=== PATIENT | female | born 1965 | race Caucasian/White ===

== ENCOUNTER 2018-12-24 11:06 | Emergency (ER) | payer BC ==
[2018-12-24 11:21] VITALS: BP 135/70
--- NOTE | 2018-12-24 11:56 | EDM.PDOC ---
ED HPI GENERAL MEDICAL PROBLEM - General Chief Complaint: Exposure to Heat or Cold Stated Complaint: VERY WEAK? Time Seen by Provider: 12/24/18 11:53 Source of Information: Reports: Patient History Limitations: Reports: No Limitations - History of Present Illness INITIAL COMMENTS - FREE TEXT/NARRATIVE: states her A/C broke and house got really hot then went outside to cool off. but has been feeling nauseous shaky no appetite all yesterday then today still feels little weak. denies CP/SOB but been having BOLAÑOS. - Related Data Allergies Allergy/AdvReac Type Severity Reaction Status Date / Time amoxicillin [Amoxicillin] Allergy Unknown UNKNOWN Verified 12/24/18 11:18 cephalexin [Cephalexin] Allergy Unknown Rash Verified 12/24/18 11:18 Penicillins Allergy Unknown UNKNOWN Verified 12/24/18 11:18 telithromycin [Telithromycin] Allergy Unknown Nausea Verified 12/24/18 11:18 Home Meds: Home Meds Omeprazole Magnesium [Prilosec Otc] 20 mg PO ASDIRECTED 12/14/14 [History] Simvastatin [Zocor] 20 mg PO DAILY 12/14/14 [History] lamoTRIgine [Lamotrigine] 100 mg PO BID 12/14/14 [History] Albuterol [Proair HFA] 2 puff IH Q6HR PRN 04/23/15 [History] Fluticasone/Salmeterol [Advair 250-50] 1 puff IH BID 04/23/15 [History] Levothyroxine [Synthroid] 112 mcg PO ACBREAKFAST 04/23/15 [History] Venlafaxine HCl [Venlafaxine ER] 75 mg PO DAILY 06/17/18 [History] Past Medical History HEENT History: Reports: None Cardiovascular History: Reports: None Respiratory History: Reports: None Gastrointestinal History: Reports: None Genitourinary History: Reports: None [employer]INU[employer] PROCESS History: Reports: None Neurological History: Reports: None Psychiatric History: Reports: None Endocrine/Metabolic History: Reports: None Hematologic History: Reports: None Immunologic History: Reports: None Oncologic (Cancer) History: Reports: None Dermatologic History: Reports: None - Infectious Disease History Infectious Disease History: Reports: None - Past Surgical History Head Surgeries/Procedures: Reports: None Other HEENT Surgeries/Procedures: rt jaw noncancerous tumor removed Other Female Surgeries/Procedures: rt breast surgeries Other Musculoskeletal Surgeries/Procedures:: rt wrist surgery Social & Family History - Family History Family Medical History: Noncontributory - Tobacco Use Smoking Status *Q: Never Smoker Second Hand Smoke Exposure: No - Caffeine Use Caffeine Use: Reports: Coffee - Recreational Drug Use Recreational Drug Use: No ED ROS GENERAL - Review of Systems Review Of Systems: ROS reveals no pertinent complaints other than HPI. ED EXAM, GENERAL - Physical Exam Exam: See Below Exam Limited By: No Limitations General Appearance: Alert, WD/WN, Mild Distress, Other (discomfort) Eye Exam: Bilateral Eye: PERRL (pupils ER @ 4mm) Ears: Hearing Grossly Normal Throat/Mouth: Normal Voice, No Airway Compromise Head: Atraumatic Neck: Non-Tender, Full Range of Motion Respiratory/Chest: No Respiratory Distress Cardiovascular: Regular Rate, Rhythm GI/Abdominal: Soft, Non-Tender Neurological: Alert, Oriented, Normal Cognition, Normal Gait, No Motor/Sensory Deficits Psychiatric: Flat Affect Skin Exam: Warm, Dry, Normal Color Lymphatic: No Adenopathy Course - Vital Signs Last Recorded V/S: Last Vital Signs Temp 36.3 C 12/24/18 11:18 Pulse 80 12/24/18 11:18 Resp 18 12/24/18 11:18 BP 135/70 12/24/18 11:18 Pulse Ox 100 12/24/18 11:18 - Orders/Labs/Meds Orders: Active Orders 24 hr Category Date Time Status Chest 1V Frontal [CR] Urgent Exams 12/24/18 11:59 Taken TROPONIN I [CHEM] Stat Lab 12/24/18 11:30 Received Sodium Chloride 0.9% [Normal Saline] 1,000 ml Med 12/24/18 12:30 Active IV ASDIRECTED Medication Orders Sodium Chloride (Normal Saline) 1,000 mls @ 999 mls/hr IV ASDIRECTED YOHANA Last Admin: 12/24/18 11:30 Dose: 999 mls/hr Labs: Laboratory Tests 12/24/18 12/24/18 Range/Units 11:30 11:30 WBC 7.9 (5.0-10.0) 10^3/uL RBC 5.40 (4.2-5.4) 10^6/uL Hgb 15.1 D (12.0-16.0) g/dL Hct 46.7 (37.0-47.0) % MCV 86.5 (80-100) fL MCH 28.0 (27.0-34.0) pg MCHC 32.3 L (33.0-35.0) g/dL Plt Count 331 D (150-450) 10^3/uL Neut % (Auto) 61.5 (42.2-75.2) % Lymph % (Auto) 29.1 (20.5-50.1) % [place] % (Auto) 9.0 H (2-8) % Eos % (Auto) 0.1 L (1.0-3.0) % Baso % (Auto) 0.3 (0.0-1.0) % Sodium 138 (135-145) mmol/L Potassium 3.8 (3.6-5.0) mmol/L Chloride 101 (101-111) mmol/L Carbon Dioxide 25.0 (21.0-31.0) mmol/L Anion Gap 15.8 BUN 13 (7-18) mg/dL Creatinine 1.0 (0.6-1.3) mg/dL Est Cr Clr Drug Dosing 55.54 mL/min Estimated GFR (MDRD) 58 BUN/Creatinine Ratio 13.00 Glucose 115 H (74-105) mg/dL Calcium 9.1 (8.4-10.2) mg/dl Total Bilirubin 0.7 (0.2-1.0) mg/dL AST 26 (10-42) IU/L ALT 24 (10-60) IU/L Alkaline Phosphatase 89 (42-121) IU/L Total Protein 8.1 (6.7-8.2) g/dl Albumin 4.5 (3.2-5.5) g/dl Globulin 3.6 Albumin/Globulin Ratio 1.25 Meds: Medications Generic Name Dose Route Start Last Admin Trade Name Freq PRN Reason Stop Dose Admin Sodium Chloride 1,000 mls @ 999 mls/hr 12/24/18 12:30 12/24/18 11:30 Normal Saline IV 999 mls/hr ASDIRECTED [facility] Administration - Re-Assessments/Exams Free Text/Narrative Re-Assessment/Exam: 12/24/18 12:54 results discussed with pt who is feeling better and normal now. Departure - Departure Time of Disposition: 12:55 Disposition: Home, Self-Care 01 Condition: Good Clinical Impression: Dehydration - Discharge Information Instructions: Dehydration, Adult, [id number] Forms: ED Department Discharge Additional Instructions: 1) rest 2) drink lot of liquids 3) recheck if there is any change or concern - My Orders Last 24 Hours: My Active Orders 12/24/18 11:30 TROPONIN I [CHEM] Stat 12/24/18 11:59 Chest 1V Frontal [CR] Urgent 12/24/18 12:30 Sodium Chloride 0.9% [Normal Saline] 1,000 ml IV ASDIRECTED - Assessment/Plan Last 24 Hours: My Active Orders 12/24/18 11:30 TROPONIN I [CHEM] Stat 12/24/18 11:59 Chest 1V Frontal [CR] Urgent 12/24/18 12:30 Sodium Chloride 0.9% [Normal Saline] 1,000 ml IV ASDIRECTED
[2018-12-24 11:59] LABS: ANION GAP 15.8
[2018-12-24] MEDS ORDERED: Sodium Chloride 0.9% 1,000 ML IV SCH (12:30)
== END 2018-12-24 13:07 | disposition home or self-care (01) ==
LOC: DL.ED 11:06
DX: E86.0 Dehydration (principal); Z88.1 Allergy status to other antibiotic agents; Z88.0 Allergy status to penicillin; Z79.899 Other long term (current) drug therapy
CPT/HCPCS: 36415; 71045; 80053; 84484; 85025; 96360; 99284; J7030

== ENCOUNTER 2019-09-30 10:43 | Emergency (ER) | payer BC ==
[2019-09-30 10:53] VITALS: BP 145/88; PULSE 91
[2019-09-30] MEDS: Aspirin 81 MG Tab.Chew PO ONE (10:57)
[2019-09-30 11:22] LABS: ANION GAP 8.8 mEq/L (7-13); CHLORIDE,CL 101 mmol/L (98-107); SODIUM,NA 141 mmol/L (136-145)
[2019-09-30] MEDS: Ketorolac 30 MG/ML SDV IVPUSH ONE (11:45)
--- NOTE | 2019-09-30 12:13 | EDM.PDOC ---
Scribed by Madeleine Winston 09/30/19 1126 for Yovanny [place] ED HPI GENERAL MEDICAL PROBLEM - General Chief Complaint: Chest Pain Stated Complaint: POSSIBLE HEART ATTACK Time Seen by Provider: 09/30/19 11:06 Source of Information: Reports: Patient, RN, RN Notes Reviewed History Limitations: Reports: No Limitations - History of Present Illness INITIAL COMMENTS - FREE TEXT/NARRATIVE: This 54 yo female presents to ER with chest pain radiating to right shoulder and back. Her pain started at 10:30 A.M. yesterday. She was seen in the clinic yesterday. She had shoulder pain so an x-ray was done. She was given a muscle relaxer but did not fill that prescription. She took an old medication from 2016. She has had no sleep. She did take an Tylenol this A.M. with no change. She sneezed this A.M. and had increased chest pain. Onset Date: 09/29/19 Duration: Constant Location: Reports: Chest, Back, Upper Extremity, Right Quality: Reports: Ache Severity: Severe Improves with: Reports: None Worsens with: Reports: None Associated Symptoms: Reports: No Other Symptoms Treatments DIRECTOR OF PHYSIOTHERAPY SERVICES: Reports: Acetaminophen Right Chest Pain Score (Numeric/FACES): 10 - Related Data Allergies Allergy/AdvReac Type Severity Reaction Status Date / Time amoxicillin [Amoxicillin] Allergy Unknown UNKNOWN Verified 09/30/19 10:58 cephalexin [Cephalexin] Allergy Unknown Rash Verified 09/30/19 10:58 Penicillins Allergy Unknown UNKNOWN Verified 09/30/19 10:58 telithromycin [Telithromycin] Allergy Unknown Nausea Verified 09/30/19 10:58 Home Meds: Home Meds Omeprazole Magnesium [Prilosec Otc] 20 mg PO ASDIRECTED 12/14/14 [History] Simvastatin [Zocor] 20 mg PO DAILY 12/14/14 [History] lamoTRIgine [Lamotrigine] 100 mg PO BID 12/14/14 [History] Albuterol [Proair HFA] 2 puff IH Q6HR PRN 04/23/15 [History] Fluticasone/Salmeterol [Advair 250-50] 1 puff IH BID 04/23/15 [History] Levothyroxine [Synthroid] 125 mcg PO ACBREAKFAST 10/06/15 [History] Venlafaxine HCl [Venlafaxine ER] 75 mg PO DAILY 06/17/18 [History] Cyclobenzaprine [Flexeril] 10 mg PO Q8HR PRN 09/30/19 [History] Meloxicam 15 mg PO DAILY 09/30/19 [History] Past Medical History HEENT History: Reports: None Cardiovascular History: Reports: None Respiratory History: Reports: None Gastrointestinal History: Reports: GERD Genitourinary History: Reports: None [employer] History: Reports: None Neurological History: Reports: None Psychiatric History: Reports: None Endocrine/Metabolic History: Reports: None Hematologic History: Reports: None Immunologic History: Reports: None Oncologic (Cancer) History: Reports: None Dermatologic History: Reports: None - Infectious Disease History Infectious Disease History: Reports: None - Past Surgical History Head Surgeries/Procedures: Reports: None Other HEENT Surgeries/Procedures: rt jaw noncancerous tumor removed Other Female Surgeries/Procedures: rt breast surgeries Other Musculoskeletal Surgeries/Procedures:: rt wrist surgery Social & Family History - Family History Family Medical History: Noncontributory - Caffeine Use Caffeine Use: Reports: Coffee ED ROS GENERAL - Review of Systems Review Of Systems: Comprehensive ROS is negative, except as noted in HPI. ED EXAM, GENERAL - Physical Exam Exam: See Below Exam Limited By: No Limitations General Appearance: Anxious Eye Exam: Bilateral Eye: EOMI, Normal Inspection, PERRL Ears: Normal External Exam, Normal Canal, Hearing Grossly Normal, Normal TMs Nose: Normal Inspection, Normal Mucosa, No Blood Throat/Mouth: Normal Inspection, Normal Lips, Normal Teeth, Normal Gums, Normal Oropharynx, Normal Voice, No Airway Compromise Head: Atraumatic, Normocephalic Neck: Normal Inspection, Supple, Non-Tender, Full Range of Motion Respiratory/Chest: No Respiratory Distress, Lungs Clear, Other (chest wall tenderness to palpation) Cardiovascular: Normal Peripheral Pulses, Regular Rate, Rhythm, No Edema, No Gallop, No JVD, No Murmur, No Rub GI/Abdominal: Normal Bowel Sounds, Soft, Non-Tender, No Organomegaly, No Distention, No Abnormal Bruit, No Mass (Female) Exam: Deferred Rectal (Female) Exam: Deferred Back Exam: Normal Inspection, Full Range of Motion, NT Extremities: Normal Inspection, Normal Range of Motion, Non-Tender, Normal Capillary Refill, No Pedal Edema Neurological: Alert, Oriented, CN II-XII Intact, Normal Cognition, Normal Gait, Normal Reflexes, No Motor/Sensory Deficits Psychiatric: Anxious Skin Exam: Warm, Dry, Intact, Normal Color, No Rash Course - Vital Signs Last Recorded V/S: Last Vital Signs Temp 37.3 C 09/30/19 10:51 Pulse 91 09/30/19 10:51 Resp 14 09/30/19 10:51 BP 145/88 H 09/30/19 10:51 Pulse Ox 96 09/30/19 10:51 - Orders/Labs/Meds Orders: Active Orders 24 hr Category Date Time Status EKG Documentation Completion [RC] URGENT Care 09/30/19 10:44 Active Labs: Laboratory Tests 09/30/19 09/30/19 09/30/19 Range/Units 10:51 10:51 10:51 WBC 13.6 H (5.0-10.0) 10^3/uL RBC 4.96 (4.2-5.4) 10^6/uL Hgb 13.5 D (12.0-16.0) g/dL Hct 41.4 (37.0-47.0) % MCV 83.5 D (80-100) fL MCH 27.2 (27.0-34.0) pg MCHC 32.6 L (33.0-35.0) g/dL Plt Count 282 (150-450) 10^3/uL Neut % (Auto) 72.2 (42.2-75.2) % Lymph % (Auto) 16.8 L (20.5-50.1) % [place] % (Auto) 10.6 H (2-8) % Eos % (Auto) 0.1 L (1.0-3.0) % Baso % (Auto) 0.3 (0.0-1.0) % D-Dimer, Quantitative 170 (0-400) ng/mL Sodium 141 (136-145) mmol/L Potassium 3.8 (3.5-5.1) mmol/L Chloride 101 (98-107) mmol/L Carbon Dioxide 35 H (21-32) mmol/L Anion Gap 8.8 (7-13) mEq/L BUN 7 (7-18) mg/dL Creatinine 0.82 (0.55-1.02) mg/dL Est Cr Clr Drug Dosing 66.94 mL/min Estimated GFR (MDRD) > 60 BUN/Creatinine Ratio 8.5 (No establ ref range) Glucose 107 H (74-99) mg/dL Calcium 8.6 (8.5-10.1) mg/dL Total Bilirubin 0.5 (0.2-1.0) mg/dL AST 14 L (15-37) U/L ALT 23 (14-59) U/L Alkaline Phosphatase 106 (46-116) U/L Troponin I < 0.017 (0.000-0.056) ng/mL Total Protein 7.6 (6.4-8.2) g/dL Albumin 3.8 (3.4-5.0) g/dL Globulin 3.8 Albumin/Globulin Ratio 1.0 Meds: Medications Discontinued Medications Generic Name Dose Route Start Last Admin Trade Name Freq PRN Reason Stop Dose Admin Aspirin 324 mg 09/30/19 10:45 09/30/19 10:57 Aspirin PO 09/30/19 10:46 324 mg ONETIME ONE Administration Ketorolac Tromethamine 30 mg 09/30/19 11:41 09/30/19 11:45 Toradol IVPUSH 09/30/19 11:42 30 mg ONETIME ONE Administration Orphenadrine Citrate 60 mg 09/30/19 12:08 Norflex IM 09/30/19 12:09 ONETIME ONE Departure - Departure Time of Disposition: 12:09 Disposition: Home, Self-Care 01 Condition: Fair Clinical Impression: Muscle strain of upper back Instructions: Muscle Strain, [id number] Forms: ED Department Discharge Care Plan Goals: The patient was advised of the examination, lab, EKG and x-ray results during the visit. The patient was given an IV dose of Toradol and an injection of Norflex while in the ED. The patient was discharged with a script for Toradol ( 10 mg) #12 to take 1 by mouth every 6 hours. The patient was encouraged to take her Flexeril as prescribed. If the patient has any additional symptoms or concerns, the patient should either return to the emergency department or visit her primary care facility. Sepsis Event Note - Evaluation Sepsis Screening Result: No Definite Risk - Focused Exam Vital Signs: Vital Signs Temp Pulse Resp BP Pulse Ox 09/30/19 10:51 37.3 C 91 14 145/88 H 96 Date Exam was Performed: 09/30/19 Time Exam was Performed: 12:09 - My Orders Last 24 Hours: My Active Orders 09/30/19 10:44 EKG Documentation Completion [RC] URGENT - Assessment/Plan Last 24 Hours: My Active Orders 09/30/19 10:44 EKG Documentation Completion [RC] URGENT I have read and agree with the documentation that has been completed regarding this visit. By signing this record, I attest that the documentation was completed in my physical presence and is an accurate record of the encounter.
== END 2019-09-30 12:38 | disposition home or self-care (01) ==
LOC: DL.ED 10:43
DX: S29.012A Strain of muscle and tendon of back wall of thorax, initial encounter (principal); K21.9 Gastro-esophageal reflux disease without esophagitis; Z88.1 Allergy status to other antibiotic agents; Z88.0 Allergy status to penicillin; Z79.899 Other long term (current) drug therapy; X58.XXXA Exposure to other specified factors, initial encounter
CPT/HCPCS: 36415; 71045; 80053; 84484; 85025; 85379; 93005; 96372; 96374; 99285; A9270; J1885; J2360

== ENCOUNTER 2021-06-30 12:29 | Emergency (ER) | payer BC ==
[2021-06-30 14:24] VITALS: BP 141/84; PULSE 127
[2021-06-30] MEDS ORDERED: Ondansetron 4 MG/2 ML SDV IVPUSH ONE (14:30)
[2021-06-30] MEDS ORDERED: Sodium Chloride 0.9% 1,000 ML IV ONE (14:30)
[2021-06-30] MEDS ORDERED: GI Cocktail Oral Solution 30 ML PO ONE (14:44)
--- NOTE | 2021-06-30 14:44 | EDM.PDOC ---
ED HPI GENERAL MEDICAL PROBLEM - General Chief Complaint: Abdominal Pain Stated Complaint: THROWING UP Time Seen by Provider: 06/30/21 14:31 Source of Information: Reports: Patient, RN, RN Notes Reviewed History Limitations: Reports: No Limitations - History of Present Illness INITIAL COMMENTS - FREE TEXT/NARRATIVE: Danyelle is a 56 y/o female who presents to the ED via personal vehicle with complaints of abdominal pain, nausea, vomiting, and diarrhea. The patient reports her symptoms began this morning at approximately 0300. Since that time she has experienced 8 bouts of emesis and as many episodes of diarrhea. She notes both of bilious in nature, however she noted some mendez-red blood with her last emesis and became worried. She characterizes the pain to her midepigastric area as sharp with radiation into her back. The pain waxes and wanes in severity and causes her to experienced SOB at times. The patient reports she was diagnosed with COVID-19 in early May and has recovered without complication. She denies fever, shaking chills, vision changes, dizziness, chest pain/pressure, dysuria, hematuria, hematochezia, or melena. She has taken no medications for her symptoms. The patient denies tobacco, alcohol, or recreational drug use. - Related Data Allergies Allergy/AdvReac Type Severity Reaction Status Date / Time amoxicillin [Amoxicillin] Allergy Unknown UNKNOWN Verified 09/30/19 10:58 cephalexin [Cephalexin] Allergy Unknown Rash Verified 09/30/19 10:58 Penicillins Allergy Unknown UNKNOWN Verified 09/30/19 10:58 telithromycin [Telithromycin] Allergy Unknown Nausea Verified 09/30/19 10:58 Home Meds: Home Meds Omeprazole Magnesium [Prilosec Otc] 20 mg PO ASDIRECTED 12/14/14 [History] Simvastatin [Zocor] 20 mg PO DAILY 12/14/14 [History] lamoTRIgine [Lamotrigine] 50 mg PO BID 12/14/14 [History] Levothyroxine [Synthroid] 200 mcg PO ACBREAKFAST 04/23/15 [History] Venlafaxine HCl [Venlafaxine ER] 75 mg PO DAILY 06/17/18 [History] Adalimumab [Humira(Cf) Pen] 1 injection SQ WEEKLY 06/30/21 [History] Past Medical History HEENT History: Reports: None Cardiovascular History: Reports: None Respiratory History: Reports: None Gastrointestinal History: Reports: GERD Genitourinary History: Reports: None 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 Neurological History: Reports: None Psychiatric History: Reports: None Endocrine/Metabolic History: Reports: None Hematologic History: Reports: None Immunologic History: Reports: None Oncologic (Cancer) History: Reports: None Dermatologic History: Reports: None - Infectious Disease History Infectious Disease History: Reports: None - Past Surgical History Head Surgeries/Procedures: Reports: None Other HEENT Surgeries/Procedures: rt jaw noncancerous tumor removed Other Female Surgeries/Procedures: rt breast surgeries Other Musculoskeletal Surgeries/Procedures:: rt wrist surgery Social & Family History - Family History Family Medical History: No Pertinent Family History - Tobacco Use Tobacco Use Status *Q: Former Tobacco User Used Tobacco, but Quit: Yes Month/Year Tobacco Last Used: 07/2015 - Caffeine Use Caffeine Use: Reports: Coffee - Recreational Drug Use Recreational Drug Use: No ED ROS GENERAL - Review of Systems Review Of Systems: Comprehensive ROS is negative, except as noted in HPI. ED EXAM, GI/ABD - Physical Exam Exam: See Below Exam Limited By: No Limitations General Appearance: Alert, No Apparent Distress Eyes: Bilateral: Normal Appearance, EOMI Ears: Normal External Exam, Hearing Grossly Normal Nose: Normal Inspection, Normal Mucosa Throat/Mouth: Normal Voice, No Airway Compromise. No: Normal Oropharynx (Dry mucous membranes) Head: Atraumatic, Normocephalic Neck: Normal Inspection, Supple, Non-Tender, Full Range of Motion. No: Lymphadenopathy (L), Lymphadenopathy (R) Respiratory/Chest: No Respiratory Distress, Lungs Clear, Normal Breath Sounds, No Accessory Muscle Use, Chest Non-Tender. No: Crackles, Rales, Rhonchi, Wheezing, Stridor Cardiovascular: Normal Peripheral Pulses, Regular Rate, Rhythm, No Edema, No Gallop, No JVD, No Murmur, No Rub, Tachycardia GI/Abdominal Exam: Soft, No Distention, No Abnormal Bruit, No Mass, Pelvis Stable, Tender (To midepigastric region; not worsened by palpation), Abnormal Bowel Sounds (Hypoactive bowel sounds). No: Guarding, Rigid, Rebound (Female) Exam: Deferred Rectal (Female) Exam: Deferred Back Exam: Normal Inspection, Full Range of Motion. No: CVA Tenderness (L), CVA Tenderness (R) Extremities: Normal Inspection, Normal Range of Motion, Normal Capillary Refill Neurological: Alert, Oriented, CN II-XII Intact, Normal Cognition, Normal Gait, No Motor/Sensory Deficits Psychiatric: Normal Affect, Normal Mood Skin Exam: Warm, Intact, Normal Color, No Rash, Diaphoretic. No: Cyanosis, Jaundice, Mottled, Pallor Course - Vital Signs Last Recorded V/S: Last Vital Signs Temp 99.5 F 06/30/21 14:07 Pulse 127 H 06/30/21 14:07 Resp 20 06/30/21 14:07 BP 141/84 H 06/30/21 14:07 Pulse Ox 94 L 06/30/21 14:07 - Orders/Labs/Meds Labs: Laboratory Tests 06/30/21 06/30/21 06/30/21 Range/Units 14:38 14:38 14:38 WBC 9.6 (5.0-10.0) 10^3/uL RBC 5.54 H (4.2-5.4) 10^6/uL Hgb 15.6 D (12.0-16.0) g/dL Hct 47.2 H (37.0-47.0) % MCV 85.2 (80-100) fL MCH 28.2 (27.0-34.0) pg MCHC 33.1 (33.0-35.0) g/dL Plt Count 282 (150-450) 10^3/uL Neut % (Auto) 82.5 H (42.2-75.2) % Lymph % (Auto) 7.1 L (20.5-50.1) % [place] % (Auto) 9.8 H (2-8) % Eos % (Auto) 0.1 L (1.0-3.0) % Baso % (Auto) 0.5 (0.0-1.0) % Sodium 141 (136-145) mmol/L Potassium 3.6 (3.5-5.1) mmol/L Chloride 102 (98-107) mmol/L Carbon Dioxide 21 D (21-32) mmol/L Anion Gap 21.6 H (7-13) mEq/L BUN 20 H (7-18) mg/dL Creatinine 1.17 H (0.55-1.02) mg/dL Est Cr Clr Drug Dosing 45.81 mL/min Estimated GFR (MDRD) 48 BUN/Creatinine Ratio 17.1 (No establ ref range) Glucose 162 H (70-99) mg/dL Lactic Acid 2.7 H* (0.4-2.0) mmol/L Calcium 8.8 (8.5-10.1) mg/dL Total Bilirubin 0.3 (0.2-1.0) mg/dL AST 21 (15-37) U/L ALT 33 (14-59) U/L Alkaline Phosphatase 92 (46-116) U/L C-Reactive Protein < 0.2 (0.0-0.9) mg/dL Total Protein 8.6 H (6.4-8.2) g/dL Albumin 4.3 (3.4-5.0) g/dL Globulin 4.3 Albumin/Globulin Ratio 1.0 Amylase 34 (25-115) U/L Lipase 70 L (73-393) U/L Urine Color (YELLOW) Urine Appearance (CLEAR) Urine pH (5.0-9.0) Ur Specific [place] (1.005-1.030) Urine Protein (NEGATIVE) Urine Glucose (UA) (NEGATIVE) Urine Ketones (NEGATIVE) Urine Occult Blood (NEGATIVE) Urine Nitrite (NEGATIVE) Urine Bilirubin (NEGATIVE) Urine Urobilinogen (0.2-1.0) mg/dL Ur Leukocyte Esterase (NEGATIVE) U Hyaline Cast (Auto) Urine RBC (0-5) /HPF Urine WBC (0-5/HPF) /HPF Ur Epithelial Cells (NOT SEEN) /HPF Urine Bacteria (0-FEW/HPF) /HPF Urine Mucus (NOT SEEN) /LPF Urine HCG, Qual Urine Opiates Screen (NEGATIVE) Ur Oxycodone Screen (NEGATIVE) Urine Methadone Screen (NEGATIVE) Ur Barbiturates Screen (NEGATIVE) U Tricyclic Antidepress (NEGATIVE) Ur Phencyclidine Scrn (NEGATIVE) Ur Amphetamine Screen (NEGATIVE) U Methamphetamines Scrn (NEGATIVE) Urine MDMA Screen (NEGATIVE) U Benzodiazepines Scrn (NEGATIVE) Urine Cocaine Screen (NEGATIVE) U Marijuana (THC) Screen (NEGATIVE) Ethyl Alcohol < 3 (0) mg/dL 06/30/21 06/30/21 06/30/21 Range/Units 17:25 17:25 17:25 WBC (5.0-10.0) 10^3/uL RBC (4.2-5.4) 10^6/uL Hgb (12.0-16.0) g/dL Hct (37.0-47.0) % MCV (80-100) fL MCH (27.0-34.0) pg MCHC (33.0-35.0) g/dL Plt Count (150-450) 10^3/uL Neut % (Auto) (42.2-75.2) % Lymph % (Auto) (20.5-50.1) % [place] % (Auto) (2-8) % Eos % (Auto) (1.0-3.0) % Baso % (Auto) (0.0-1.0) % Sodium (136-145) mmol/L Potassium (3.5-5.1) mmol/L Chloride (98-107) mmol/L Carbon Dioxide (21-32) mmol/L Anion Gap (7-13) mEq/L BUN (7-18) mg/dL Creatinine (0.55-1.02) mg/dL Est Cr Clr Drug Dosing mL/min Estimated GFR (MDRD) BUN/Creatinine Ratio (No establ ref range) Glucose (70-99) mg/dL Lactic Acid (0.4-2.0) mmol/L Calcium (8.5-10.1) mg/dL Total Bilirubin (0.2-1.0) mg/dL AST (15-37) U/L ALT (14-59) U/L Alkaline Phosphatase (46-116) U/L C-Reactive Protein (0.0-0.9) mg/dL Total Protein (6.4-8.2) g/dL Albumin (3.4-5.0) g/dL Globulin Albumin/Globulin Ratio Amylase (25-115) U/L Lipase (73-393) U/L Urine Color Dark yellow (YELLOW) Urine Appearance Slightly cloudy (CLEAR) Urine pH 5.5 (5.0-9.0) Ur Specific [place] >= 1.030 (1.005-1.030) Urine Protein 100 H (NEGATIVE) Urine Glucose (UA) Negative (NEGATIVE) Urine Ketones Negative (NEGATIVE) Urine Occult Blood Negative (NEGATIVE) Urine Nitrite Negative (NEGATIVE) Urine Bilirubin Negative (NEGATIVE) Urine Urobilinogen 0.2 (0.2-1.0) mg/dL Ur Leukocyte Esterase Negative (NEGATIVE) U Hyaline Cast (Auto) Many Urine RBC 0-5 (0-5) /HPF Urine WBC 0-5 (0-5/HPF) /HPF Ur Epithelial Cells Many H (NOT SEEN) /HPF Urine Bacteria Moderate H (0-FEW/HPF) /HPF Urine Mucus Moderate H (NOT SEEN) /LPF Urine HCG, Qual Negative Urine Opiates Screen Negative (NEGATIVE) Ur Oxycodone Screen Negative (NEGATIVE) Urine Methadone Screen Negative (NEGATIVE) Ur Barbiturates Screen Negative (NEGATIVE) U Tricyclic Antidepress Negative (NEGATIVE) Ur Phencyclidine Scrn Negative (NEGATIVE) Ur Amphetamine Screen Negative (NEGATIVE) U Methamphetamines Scrn Negative (NEGATIVE) Urine MDMA Screen Negative (NEGATIVE) U Benzodiazepines Scrn Negative (NEGATIVE) Urine Cocaine Screen Negative (NEGATIVE) U Marijuana (THC) Screen Negative (NEGATIVE) Ethyl Alcohol (0) mg/dL Meds: Medications Discontinued Medications Generic Name Dose Route Start Last Admin Trade Name Freq PRN Reason Stop Dose Admin Al Hydroxide/Mg Hydroxide 30 ml 06/30/21 14:44 06/30/21 14:54 Gi Cocktail Oral Solution 30 Ml PO 06/30/21 14:45 30 ml ONETIME ONE Administration Sodium Chloride 1,000 mls @ 999 mls/hr 06/30/21 14:30 06/30/21 14:32 Normal Saline IV 06/30/21 15:30 999 mls/hr .BOLUS ONE Administration Ondansetron HCl 4 mg 06/30/21 14:30 06/30/21 14:32 Ondansetron 4 Mg/2 Ml Sdv IVPUSH 06/30/21 14:31 4 mg ONETIME ONE Administration - Re-Assessments/Exams Free Text/Narrative Re-Assessment/Exam: 06/30/21 Zofran 4mg IVP and NS 1L bolus initiated. GI cocktail administered Patient verbalized resolution of midepigastric pain following GI cocktail. Findings of examination and lab work reviewed with patient. Will refrain from imaging at this time due to resolution in pain. Will treat nausea with Zofran ODT. Supportive cares for gastritis discussed. Patient instructed to follow up with primary care provider in 3-5 days regarding todays visit. Red flag signs and symptoms which would warrant immediate reevaluation reviewed. Patient verbalized understanding and agreement with the plan of care. Departure - Departure Time of Disposition: 17:58 Disposition: Home, Self-Care 01 Condition: Good Clinical Impression: Gastroenteritis - Discharge Information *PRESCRIPTION DRUG MONITORING PROGRAM REVIEWED*: Not Applicable *COPY OF PRESCRIPTION DRUG MONITORING REPORT IN PATIENT LETITIA: Not Applicable Instructions: Viral Gastroenteritis, Adult, [id number], Food Choices to Help Relieve Diarrhea, Adult, Nausea and Vomiting, Adult, [id number] Forms: ED Department Discharge Additional Instructions: Rx: Zofran ODT 4mg (#12) 1.) Drink small, frequent sips of water to avoid nausea but stay hydrated. You may also try Powerade, Gatorade, etc... 2.) Eat a bland diet, once you are 6-8 hours free of vomiting. Applesauce, toast, crackers, etc.. Avoid spicy, greasy, high-fat foods. 3.) You may try [id number] antacids, such a Pepto Bismol, Pepcid, or Maalox, should pain return. 4.) Follow up with your primary care provider in 3-5 days, sooner should symptoms persist or worsen. Return to the emergency department with any persistent or worsening symptoms. Sepsis Event Note (ED) - Evaluation Sepsis Screening Result: No Definite Risk
[2021-06-30 15:15] LABS: ANION GAP 21.6 mEq/L (7-13); CHLORIDE,CL 102 mmol/L (98-107); SODIUM,NA 141 mmol/L (136-145)
[2021-06-30 17:40] LABS: AMPHETAMINES,URINE NEGATIVE (NEGATIVE); BARBITURATES,URINE NEGATIVE (NEGATIVE); BENZODIAZEPINE,URINE NEGATIVE (NEGATIVE); MDMA (ECSTASY), URINE NEGATIVE (NEGATIVE); METHADONE,URINE NEGATIVE (NEGATIVE); METHAMPHETAMINES,URINE NEGATIVE (NEGATIVE); OPIATES,URINE NEGATIVE (NEGATIVE); OXYCODONE,URINE NEGATIVE (NEGATIVE); PHENCYCLIDINE,URINE NEGATIVE (NEGATIVE); TCA,URINE NEGATIVE (NEGATIVE)
== END 2021-06-30 18:25 | disposition home or self-care (01) ==
LOC: DL.ED 12:29
DX: K52.9 Noninfective gastroenteritis and colitis, unspecified (principal); K21.9 Gastro-esophageal reflux disease without esophagitis; Z88.0 Allergy status to penicillin; Z88.1 Allergy status to other antibiotic agents; Z79.899 Other long term (current) drug therapy; Z87.891 Personal history of nicotine dependence
CPT/HCPCS: 36415; 80053; 80305; 80307; 81001; 81025; 82150; 83605; 83690; 85025; 86140; 96374; 99284; A9270; J2405; J7030

== ENCOUNTER 2021-07-02 12:50 | Emergency (ER) | payer BC ==
[2021-07-02 14:26] VITALS: BP 155/82; PULSE 107
--- NOTE | 2021-07-02 14:41 | EDM.PDOC ---
ED HPI GENERAL MEDICAL PROBLEM - General Chief Complaint: Abdominal Pain Stated Complaint: UPSET STOMACH Time Seen by Provider: 07/02/21 14:40 Source of Information: Reports: Patient, RN, RN Notes Reviewed History Limitations: Reports: No Limitations - History of Present Illness INITIAL COMMENTS - FREE TEXT/NARRATIVE: Danyelle is a 56 y/o female who presents to the ED via personal vehicle with complaints of persistent abdominal pain. The patient reports her symptoms, including nausea, vomiting, and diarrhea, began two days ago. While the vomiting has subsided and the diarrhea has lessened, the nausea and pain persist. She characterizes the pain as sharp and more prominent in her RLQ than compared to her last visit in which she noted the pain was more prominent in her midepigastric region. Additionally, she now notes warmth with urination that was not present two days ago. She continues to deny fever, shaking chills, vision changes, dizziness, chest pain/pressure, hematuria, hematemesis, hematochezia, or melena. The patient states she as taken doses of her prescribed Zofran and OTC maalox with no alleviation in symptoms. She denies tobacco, alcohol, or recreational drug use. Abdomen Pain Score (Numeric/FACES): 10 - Related Data Allergies Allergy/AdvReac Type Severity Reaction Status Date / Time amoxicillin [Amoxicillin] Allergy Unknown UNKNOWN Verified 07/02/21 14:26 cephalexin [Cephalexin] Allergy Unknown Rash Verified 07/02/21 14:26 Penicillins Allergy Unknown UNKNOWN Verified 07/02/21 14:26 telithromycin [Telithromycin] Allergy Unknown Nausea Verified 07/02/21 14:26 Home Meds: Home Meds Omeprazole Magnesium [Prilosec Otc] 20 mg PO ASDIRECTED 12/14/14 [History] Simvastatin [Zocor] 20 mg PO DAILY 12/14/14 [History] lamoTRIgine [Lamotrigine] 50 mg PO BID 12/14/14 [History] Levothyroxine [Synthroid] 200 mcg PO ACBREAKFAST 04/23/15 [History] Venlafaxine HCl [Venlafaxine ER] 75 mg PO DAILY 06/17/18 [History] Adalimumab [Humira(Cf) Pen] 1 injection SQ WEEKLY 06/30/21 [History] Past Medical History HEENT History: Reports: None Cardiovascular History: Reports: None Respiratory History: Reports: None Gastrointestinal History: Reports: GERD Genitourinary History: Reports: None 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 Musculoskeletal History: Reports: RA Neurological History: Reports: None Psychiatric History: Reports: Anxiety, Depression Endocrine/Metabolic History: Reports: None, Hypothyroidism Hematologic History: Reports: None Immunologic History: Reports: None Oncologic (Cancer) History: Reports: None Dermatologic History: Reports: None - Infectious Disease History Infectious Disease History: Reports: None - Past Surgical History Head Surgeries/Procedures: Reports: None Other HEENT Surgeries/Procedures: rt jaw noncancerous tumor removed Other Female Surgeries/Procedures: rt breast surgeries Other Musculoskeletal Surgeries/Procedures:: rt wrist surgery Social & Family History - Family History Family Medical History: No Pertinent Family History - Tobacco Use Tobacco Use Status *Q: Unknown Ever Used Tobacco - Caffeine Use Caffeine Use: Reports: Coffee - Recreational Drug Use Recreational Drug Use: No ED ROS GENERAL - Review of Systems Review Of Systems: Comprehensive ROS is negative, except as noted in HPI. ED EXAM, GI/ABD - Physical Exam Exam: See Below Exam Limited By: No Limitations General Appearance: Alert, No Apparent Distress. No: Active Emesis Eyes: Bilateral: Normal Appearance, EOMI Ears: Normal External Exam Nose: Normal Inspection Throat/Mouth: Normal Inspection, Normal Oropharynx, Normal Voice, No Airway Compromise Head: Atraumatic, Normocephalic Neck: Normal Inspection, Supple, Non-Tender, Full Range of Motion Respiratory/Chest: No Respiratory Distress, Lungs Clear, Normal Breath Sounds, No Accessory Muscle Use, Chest Non-Tender Cardiovascular: Normal Peripheral Pulses, Regular Rate, Rhythm, No Edema, No Gallop, No JVD, No Murmur, No Rub, Tachycardia GI/Abdominal Exam: Soft, No Distention, No Abnormal Bruit, No Mass, Pelvis Stable, Rebound (Mild worsening of pain), Tender (Diffuse to palpation, greater in RLQ), Abnormal Bowel Sounds (Hyperactive bowel sounds). No: Guarding, Rigid (Female) Exam: Deferred Rectal (Female) Exam: Deferred Back Exam: Normal Inspection, Full Range of Motion. No: CVA Tenderness (L), CVA Tenderness (R) Extremities: Normal Inspection, Normal Range of Motion, Non-Tender, No Pedal Edema, Normal Capillary Refill Neurological: Alert, Oriented, CN II-XII Intact, Normal Cognition, Normal Gait, No Motor/Sensory Deficits Psychiatric: Normal Affect, Normal Mood Skin Exam: Warm, Dry, Intact, Normal Color, No Rash. No: Cyanosis, Jaundice, Mottled, Pallor Course - Vital Signs Last Recorded V/S: Last Vital Signs Temp 97.5 F 07/02/21 14:22 Pulse 107 H 07/02/21 14:22 Resp 16 07/02/21 14:22 BP 155/82 H 07/02/21 14:22 Pulse Ox 95 07/02/21 14:22 - Orders/Labs/Meds Labs: Laboratory Tests 07/02/21 07/02/21 07/02/21 Range/Units 14:55 15:20 15:20 WBC 4.7 L (5.0-10.0) 10^3/uL RBC 5.16 (4.2-5.4) 10^6/uL Hgb 14.7 (12.0-16.0) g/dL Hct 43.8 (37.0-47.0) % MCV 84.9 (80-100) fL MCH 28.5 (27.0-34.0) pg MCHC 33.6 (33.0-35.0) g/dL Plt Count 230 (150-450) 10^3/uL Neut % (Auto) 38.2 L (42.2-75.2) % Lymph % (Auto) 37.1 (20.5-50.1) % [place] % (Auto) 23.7 H (2-8) % Eos % (Auto) 0.6 L (1.0-3.0) % Baso % (Auto) 0.4 (0.0-1.0) % Add Manual Diff Yes Neutrophils % (Manual) 41 L (42-75) % Band Neutrophils % 2 % Lymphocytes % (Manual) 35 (20-50) % Monocytes % (Manual) 22 H (2-8) % Sodium 140 (136-145) mmol/L Potassium 3.4 L (3.5-5.1) mmol/L Chloride 102 (98-107) mmol/L Carbon Dioxide 27 (21-32) mmol/L Anion Gap 14.4 H (7-13) mEq/L BUN 16 (7-18) mg/dL Creatinine 0.80 (0.55-1.02) mg/dL Est Cr Clr Drug Dosing 78.27 mL/min Estimated GFR (MDRD) > 60 BUN/Creatinine Ratio 20.0 (No establ ref range) Glucose 95 (70-99) mg/dL Lactic Acid 0.9 (0.4-2.0) mmol/L Calcium 8.1 L (8.5-10.1) mg/dL Magnesium 2.2 (1.8-2.4) mg/dL Total Bilirubin 0.3 (0.2-1.0) mg/dL AST 33 (15-37) U/L ALT 38 (14-59) U/L Alkaline Phosphatase 76 (46-116) U/L Troponin I High Sens 22 (<=51) pg/mL C-Reactive Protein < 0.2 (0.0-0.9) mg/dL Total Protein 7.5 (6.4-8.2) g/dL Albumin 3.8 (3.4-5.0) g/dL Globulin 3.7 Albumin/Globulin Ratio 1.0 Amylase 30 (25-115) U/L Lipase 74 (73-393) U/L Urine Color (YELLOW) Urine Appearance (CLEAR) Urine pH (5.0-9.0) Ur Specific [place] (1.005-1.030) Urine Protein (NEGATIVE) Urine Glucose (UA) (NEGATIVE) Urine Ketones (NEGATIVE) Urine Occult Blood (NEGATIVE) Urine Nitrite (NEGATIVE) Urine Bilirubin (NEGATIVE) Urine Urobilinogen (0.2-1.0) mg/dL Ur Leukocyte Esterase (NEGATIVE) Urine RBC (0-5) /HPF Urine WBC (0-5/HPF) /HPF Ur Epithelial Cells (NOT SEEN) /HPF Amorphous Sediment (NOT SEEN) /HPF Urine Bacteria (0-FEW/HPF) /HPF Urine Mucus (NOT SEEN) /LPF Urine Opiates Screen (NEGATIVE) Ur Oxycodone Screen (NEGATIVE) Urine Methadone Screen (NEGATIVE) Ur Barbiturates Screen (NEGATIVE) U Tricyclic Antidepress (NEGATIVE) Ur Phencyclidine Scrn (NEGATIVE) Ur Amphetamine Screen (NEGATIVE) U Methamphetamines Scrn (NEGATIVE) Urine MDMA Screen (NEGATIVE) U Benzodiazepines Scrn (NEGATIVE) Urine Cocaine Screen (NEGATIVE) U Marijuana (THC) Screen (NEGATIVE) Ethyl Alcohol < 3 (0) mg/dL 07/02/21 07/02/21 Range/Units 15:32 15:32 WBC (5.0-10.0) 10^3/uL RBC (4.2-5.4) 10^6/uL Hgb (12.0-16.0) g/dL Hct (37.0-47.0) % MCV (80-100) fL MCH (27.0-34.0) pg MCHC (33.0-35.0) g/dL Plt Count (150-450) 10^3/uL Neut % (Auto) (42.2-75.2) % Lymph % (Auto) (20.5-50.1) % [place] % (Auto) (2-8) % Eos % (Auto) (1.0-3.0) % Baso % (Auto) (0.0-1.0) % Add Manual Diff Neutrophils % (Manual) (42-75) % Band Neutrophils % % Lymphocytes % (Manual) (20-50) % Monocytes % (Manual) (2-8) % Sodium (136-145) mmol/L Potassium (3.5-5.1) mmol/L Chloride (98-107) mmol/L Carbon Dioxide (21-32) mmol/L Anion Gap (7-13) mEq/L BUN (7-18) mg/dL Creatinine (0.55-1.02) mg/dL Est Cr Clr Drug Dosing mL/min Estimated GFR (MDRD) BUN/Creatinine Ratio (No establ ref range) Glucose (70-99) mg/dL Lactic Acid (0.4-2.0) mmol/L Calcium (8.5-10.1) mg/dL Magnesium (1.8-2.4) mg/dL Total Bilirubin (0.2-1.0) mg/dL AST (15-37) U/L ALT (14-59) U/L Alkaline Phosphatase (46-116) U/L Troponin I High Sens (<=51) pg/mL C-Reactive Protein (0.0-0.9) mg/dL Total Protein (6.4-8.2) g/dL Albumin (3.4-5.0) g/dL Globulin Albumin/Globulin Ratio Amylase (25-115) U/L Lipase (73-393) U/L Urine Color Yellow (YELLOW) Urine Appearance Slightly cloudy (CLEAR) Urine pH 6.0 (5.0-9.0) Ur Specific [place] >= 1.030 (1.005-1.030) Urine Protein Trace H (NEGATIVE) Urine Glucose (UA) Negative (NEGATIVE) Urine Ketones Negative (NEGATIVE) Urine Occult Blood Negative (NEGATIVE) Urine Nitrite Negative (NEGATIVE) Urine Bilirubin Negative (NEGATIVE) Urine Urobilinogen 0.2 (0.2-1.0) mg/dL Ur Leukocyte Esterase Negative (NEGATIVE) Urine RBC 0-5 (0-5) /HPF Urine WBC 0-5 (0-5/HPF) /HPF Ur Epithelial Cells Many H (NOT SEEN) /HPF Amorphous Sediment Few (NOT SEEN) /HPF Urine Bacteria Few (0-FEW/HPF) /HPF Urine Mucus Moderate H (NOT SEEN) /LPF Urine Opiates Screen Negative (NEGATIVE) Ur Oxycodone Screen Negative (NEGATIVE) Urine Methadone Screen Negative (NEGATIVE) Ur Barbiturates Screen Negative (NEGATIVE) U Tricyclic Antidepress Negative (NEGATIVE) Ur Phencyclidine Scrn Negative (NEGATIVE) Ur Amphetamine Screen Negative (NEGATIVE) U Methamphetamines Scrn Negative (NEGATIVE) Urine MDMA Screen Negative (NEGATIVE) U Benzodiazepines Scrn Negative (NEGATIVE) Urine Cocaine Screen Negative (NEGATIVE) U Marijuana (THC) Screen Negative (NEGATIVE) Ethyl Alcohol (0) mg/dL Meds: Medications Discontinued Medications Generic Name Dose Route Start Last Admin Trade Name Holly PRN Reason Stop Dose Admin Dicyclomine HCl 10 mg 07/02/21 15:43 07/02/21 15:53 Dicyclomine 10 Mg Cap PO 07/02/21 15:44 10 mg ONETIME ONE Administration Sodium Chloride 1,000 mls @ 999 mls/hr 07/02/21 15:43 07/02/21 15:53 Normal Saline IV 07/02/21 16:43 999 mls/hr .BOLUS ONE Administration Ondansetron HCl 4 mg 07/02/21 15:43 07/02/21 15:53 Ondansetron 4 Mg/2 Ml Sdv IVPUSH 07/02/21 15:44 4 mg ONETIME ONE Administration - Re-Assessments/Exams Free Text/Narrative Re-Assessment/Exam: 07/03/21 NS 1L bolus and Zofran 4mg IVP administered while labs pending. Bentyl 10mg PO administered. Patient verbalized improvement in abdominal cramping following medication administration. Findings of examination and lab work reviewed with patient. Will treat abdominal discomfort with Bentyl. Supportive cares for gastroenteritis discussed. Patient instructed to follow up with primary care provider regarding todays visit. Red flag signs and symptoms which would warrant immediate reevaluation reviewed. Patient verbalized understanding and agreement with the plan of care. Departure - Departure Time of Disposition: 17:04 Disposition: Home, Self-Care 01 Condition: Good Clinical Impression: Viral gastroenteritis - Discharge Information *PRESCRIPTION DRUG MONITORING PROGRAM REVIEWED*: Not Applicable *COPY OF PRESCRIPTION DRUG MONITORING REPORT IN PATIENT LETITIA: Not Applicable Instructions: Viral Gastroenteritis, Adult Referrals: Mine Fong NP [Primary Care Provider] - Forms: ED Department Discharge Additional Instructions: Rx: Bentyl 20mg (#20) 1.) Continue to drink frequent sips of fluids to stay hydrated and avoid nausea. 2.) Eat small, snack-sized meals. Eat a bland diet, avoid spicy, greasy, high- fat foods. 3.) Continue with your Zofran ODT for nausea. 4.) Follow up with your primary care provider, or return to the emergency department, with persistent or worsening symptoms. Sepsis Event Note (ED) - Evaluation Sepsis Screening Result: No Definite Risk
[2021-07-02] MEDS ORDERED: Dicyclomine 10 MG Cap PO ONE (15:43)
[2021-07-02] MEDS ORDERED: Sodium Chloride 0.9% 1,000 ML IV ONE (15:43)
[2021-07-02] MEDS ORDERED: Ondansetron 4 MG/2 ML SDV IVPUSH ONE (15:43)
[2021-07-02 15:52] LABS: AMPHETAMINES,URINE NEGATIVE (NEGATIVE); BARBITURATES,URINE NEGATIVE (NEGATIVE); BENZODIAZEPINE,URINE NEGATIVE (NEGATIVE); MDMA (ECSTASY), URINE NEGATIVE (NEGATIVE); METHADONE,URINE NEGATIVE (NEGATIVE); METHAMPHETAMINES,URINE NEGATIVE (NEGATIVE); OPIATES,URINE NEGATIVE (NEGATIVE); OXYCODONE,URINE NEGATIVE (NEGATIVE); PHENCYCLIDINE,URINE NEGATIVE (NEGATIVE); TCA,URINE NEGATIVE (NEGATIVE)
[2021-07-02 16:06] LABS: ANION GAP 14.4 mEq/L (7-13); CHLORIDE,CL 102 mmol/L (98-107); SODIUM,NA 140 mmol/L (136-145)
== END 2021-07-02 17:24 | disposition home or self-care (01) ==
LOC: DL.ED 12:50
DX: A08.4 Viral intestinal infection, unspecified (principal); R11.2 Nausea with vomiting, unspecified; K21.9 Gastro-esophageal reflux disease without esophagitis; E03.9 Hypothyroidism, unspecified; Z88.0 Allergy status to penicillin; Z88.1 Allergy status to other antibiotic agents; Z79.899 Other long term (current) drug therapy
CPT/HCPCS: 36415; 80053; 80305-QW; 80307; 81001; 82150; 83605; 83690; 83735; 84484; 85025; 86140; 96374; 99284-25; A9270-GY; J2405; J7030

== ENCOUNTER 2022-02-11 18:02 | Emergency (ER) | payer BC ==
[2022-02-11 22:22] VITALS: PULSE 79
[2022-02-11 22:35] VITALS: BP 139/65
== END 2022-02-11 22:45 | disposition left against medical advice (07) ==
LOC: DL.ED 18:02
DX: Z53.21 Procedure and treatment not carried out due to patient leaving prior to being seen by health care provider (principal)

== ENCOUNTER 2022-10-29 17:40 | Emergency (ER) | payer BC ==
[2022-10-29] MEDS ORDERED: Clindamycin HCl 150 MG Cap PO ONE (17:41)
[2022-10-29 17:56] VITALS: BP 175/99; PULSE 105
[2022-10-29] MEDS: Ketorolac 30 MG/ML SDV IM ONE (18:36)
[2022-10-29] MEDS ORDERED: Clindamycin HCl 150 MG Cap ONE (18:47)
== END 2022-10-29 18:54 | disposition home or self-care (01) ==
LOC: DL.ED 17:40
DX: K04.7 Periapical abscess without sinus (principal); K02.9 Dental caries, unspecified; E78.00 Pure hypercholesterolemia, unspecified; K21.9 Gastro-esophageal reflux disease without esophagitis; E03.9 Hypothyroidism, unspecified; Z88.0 Allergy status to penicillin; Z88.1 Allergy status to other antibiotic agents; Z88.4 Allergy status to anesthetic agent; Z79.899 Other long term (current) drug therapy
CPT/HCPCS: 96372; 99282; A9270-GY; J1885

== ENCOUNTER 2022-11-29 16:24 | Emergency (ER) | payer BC ==
[2022-11-29 16:49] VITALS: BP 133/85; PULSE 112
[2022-11-29 17:22] LABS: BASOPHILS PERCENT AUTO 0.9 % (0.0-1.0); EOSINOPHILS PERCENT AUTO 2.8 % (1.0-3.0); HEMATOCRIT 37.5 % (37.0-47.0); HEMOGLOBIN 12.3 g/dL (12.0-16.0); LYMPHOCYTES PERCENT AUTO 31.5 % (20.5-50.1); MEAN CORPUSCULAR HEMOGLOBIN 27.9 pg (27.0-34.0); MEAN CORPUSCULAR HGB CONC 32.8 g/dL (33.0-35.0); MONOCYTES PERCENT AUTO 12.1 % (2-8); NEUTROPHILS PERCENT AUTO 52.7 % (42.2-75.2); PLATELET COUNT,PLT 230 10^3/uL (150-450); RED BLOOD CELL COUNT 4.41 10^6/uL (4.2-5.4); WHITE BLOOD CELL COUNT,WBC 8.8 10^3/uL (5.0-10.0)
[2022-11-29 17:43] LABS: A/G RATIO 1.2; ALBUMIN 3.6 g/dL (3.4-5.0); ANION GAP 11.4 mEq/L (7-13); BILIRUBIN TOTAL 0.4 mg/dL (0.2-1.0); CALCIUM 7.9 mg/dL (8.5-10.1); CREATININE 0.88 mg/dL (0.55-1.02); EST CRCL DRUG DOSING (CG) 60.17 mL/min; POTASSIUM,K 3.4 mmol/L (3.5-5.1); PROTEIN TOTAL,TP 6.7 g/dL (6.4-8.2)
[2022-11-29] MEDS ORDERED: Magnesium Sulfate/Water 2 GM in Premix Bag 1 BAG IV ONE ×2 (17:50→18:50)
[2022-11-29] MEDS ORDERED: Lactated Ringers 500 ML IV ONE (19:05)
== END 2022-11-29 20:39 | disposition home or self-care (01) ==
LOC: DL.ED 16:24
DX: E83.51 Hypocalcemia (principal); E83.42 Hypomagnesemia; E87.6 Hypokalemia; R19.7 Diarrhea, unspecified; E86.0 Dehydration; E87.0 Hyperosmolality and hypernatremia; R20.2 Paresthesia of skin; R20.0 Anesthesia of skin; K21.9 Gastro-esophageal reflux disease without esophagitis; E78.00 Pure hypercholesterolemia, unspecified; Z79.899 Other long term (current) drug therapy; Z88.0 Allergy status to penicillin; Z88.1 Allergy status to other antibiotic agents; Z88.8 Allergy status to other drugs, medicaments and biological substances
CPT/HCPCS: 36415; 80053; 83735; 85025; 93005; 93010; 96361; 96365; 96366; 99284; 99284-25; J3475; J7120

== ENCOUNTER 2024-01-04 18:40 | Emergency (ER) | payer BC ==
[2024-01-04] MEDS: Albuterol/Ipratropium 3.0-0.5 MG/3 ML Neb Soln ONE (19:03)
[2024-01-04 19:04] LABS: BASOPHILS PERCENT AUTO 0.8 % (0.0-1.0); EOSINOPHILS PERCENT AUTO 4.5 % (1.0-3.0); HEMATOCRIT 42.6 % (37.0-47.0); HEMOGLOBIN 14.1 g/dL (12.0-16.0); LYMPHOCYTES PERCENT AUTO 48.6 % (20.5-50.1); MEAN CORPUSCULAR HEMOGLOBIN 28.8 pg (27.0-34.0); MEAN CORPUSCULAR HGB CONC 33.1 g/dL (33.0-35.0); MEAN CORPUSCULAR VOLUME 87.1 fL (80-100); MONOCYTES PERCENT AUTO 13.3 % (2-8); NEUTROPHILS PERCENT AUTO 32.8 % (42.2-75.2); PLATELET COUNT,PLT 263 10^3/uL (150-450); RED BLOOD CELL COUNT 4.89 10^6/uL (4.2-5.4); WHITE BLOOD CELL COUNT,WBC 8.3 10^3/uL (5.0-10.0)
[2024-01-04] MEDS: Albuterol/Ipratropium 3.0-0.5 MG/3 ML Neb Soln NEB ONE (19:04)
[2024-01-04 19:07] LABS: BICARBONATE,VENOUS 28 mmol/l (19-25); O2 DELIVERY DEVICE NASAL CANNULA; O2 SATURATION VENOUS 71.7 % (60-80); PCO2 VENOUS 54 mmHg (41-51); PH,VENOUS 7.34 (7.31-7.41); PO2 VENOUS 43 mmHg (35-42)
[2024-01-04] MEDS: Sodium Chloride 0.9% 1,000 ML IV ONE (19:08)
[2024-01-04] MEDS: Magnesium Sulfate/Water 2 GM in Premix Bag 1 BAG IV ONE (19:18)
[2024-01-04 19:29] LABS: B-TYPE NATRIURETIC PEPTIDE,BNP < 5 pg/ml (0-100); PROTHROMBIN TIME 10.2 SEC (9.0-12.0)
[2024-01-04 19:32] LABS: A/G RATIO 1.2; ALANINE AMINOTRANSFERASE,ALT 39 U/L (14-59); ALBUMIN 3.8 g/dL (3.4-5.0); ALKALINE PHOSPHATASE 144 U/L (46-116); ANION GAP 12.9 mEq/L (7-13); ASPARTATE AMNIOTRANSFERASE,AST 20 U/L (15-37); BILIRUBIN TOTAL 0.3 mg/dL (0.2-1.0); BLOOD UREA NITROGEN,BUN 10 mg/dL (7-18); BUN/CREATININE RATIO 10.6 (No establ ref range); CALCIUM 8.6 mg/dL (8.5-10.1); CARBON DIOXIDE,CO2 29 mmol/L (21-32); CHLORIDE,CL 105 mmol/L (98-107); CREATININE 0.94 mg/dL (0.55-1.02); EST CRCL DRUG DOSING (CG) 54.96 mL/min; GLUCOSE RANDOM 115 mg/dL (70-99); POTASSIUM,K 3.9 mmol/L (3.5-5.1); PROTEIN TOTAL,TP 7.1 g/dL (6.4-8.2); SODIUM,NA 143 mmol/L (136-145)
[2024-01-04] MEDS: Morphine 2 MG/ML SYRINGE IVPUSH ONE (19:34)
[2024-01-04 19:39] LABS: C-REACTIVE PROTEIN < 0.50 ng/dL (<=0.50); ESTIMATED GFR 69 mL/min (>=60)
[2024-01-04] MEDS: Sodium Chloride 0.9% 10 ML Syringe FLUSH PRN (19:52)
[2024-01-04 20:09] VITALS: BP 140/64; PULSE 89
[2024-01-04] MEDS: Iopamidol 755 Mg/ML 100 ML Bottle IVPUSH ONE (20:25)
[2024-01-04] MEDS: Azithromycin 250 MG Tab PO ONE (21:25)
[2024-01-04] MEDS: Take Home: Albuterol/Ipratropium 3.0-0.5 MG/3 ML Neb Soln, 4 Neb Pack NEB ONE (21:25)
== END 2024-01-04 21:34 | disposition home or self-care (01) ==
LOC: DL.ED 18:40
DX: J45.901 Unspecified asthma with (acute) exacerbation (principal); E78.00 Pure hypercholesterolemia, unspecified; K21.9 Gastro-esophageal reflux disease without esophagitis; Z88.0 Allergy status to penicillin; Z88.8 Allergy status to other drugs, medicaments and biological substances; Z88.1 Allergy status to other antibiotic agents; Z79.890 Hormone replacement therapy; Z79.899 Other long term (current) drug therapy
CPT/HCPCS: 36415; 71045; 71275; 80053; 82803; 83605; 83880; 84145; 84484; 85025; 85610; 85730; 86140; 87040; 87635; 87804; 93005; 93010; 96365; 96375; 99284; 99285; A9270; J2270; J3475; J7030; Q9967; J3490; J7620-GY; U0002

== ENCOUNTER 2024-01-14 23:07 | Emergency (ER) | payer BC ==
[2024-01-14] MEDS: methylPREDNISolone Sodium Succinate 40 MG/1 ML SDV IVPUSH ONE (23:44)
[2024-01-14] MEDS: Morphine 2 MG/ML SYRINGE IVPUSH ONE (23:46)
[2024-01-14] MEDS: Albuterol/Ipratropium 3.0-0.5 MG/3 ML Neb Soln NEB ONE (23:48)
[2024-01-14] MEDS: Sodium Chloride 0.9% 10 ML Syringe FLUSH PRN (23:48)
[2024-01-14 23:50] LABS: BASOPHILS PERCENT AUTO 1.2 % (0.0-1.0); EOSINOPHILS PERCENT AUTO 5.8 % (1.0-3.0); HEMATOCRIT 41.3 % (37.0-47.0); HEMOGLOBIN 13.6 g/dL (12.0-16.0); LYMPHOCYTES PERCENT AUTO 37.8 % (20.5-50.1); MEAN CORPUSCULAR HEMOGLOBIN 28.9 pg (27.0-34.0); MEAN CORPUSCULAR HGB CONC 32.9 g/dL (33.0-35.0); MEAN CORPUSCULAR VOLUME 87.7 fL (80-100); MONOCYTES PERCENT AUTO 12.8 % (2-8); NEUTROPHILS PERCENT AUTO 42.4 % (42.2-75.2); PLATELET COUNT,PLT 251 10^3/uL (150-450); RED BLOOD CELL COUNT 4.71 10^6/uL (4.2-5.4); WHITE BLOOD CELL COUNT,WBC 7.6 10^3/uL (5.0-10.0)
[2024-01-15 00:23] VITALS: BP 124/61; PULSE 94
[2024-01-15] MEDS: Ipratropium 0.02% 0.5 MG/2.5 ML Neb Soln NEB ONE (00:28)
[2024-01-15] MEDS: diphenhydrAMINE 50 MG/ML SDV IVPUSH ONE ×2 (00:57→01:30)
== END 2024-01-15 01:10 | disposition home or self-care (01) ==
LOC: DL.ED 23:07
DX: J45.909 Unspecified asthma, uncomplicated (principal); E78.00 Pure hypercholesterolemia, unspecified; K21.9 Gastro-esophageal reflux disease without esophagitis; Z87.891 Personal history of nicotine dependence; Z79.899 Other long term (current) drug therapy; Z88.0 Allergy status to penicillin; Z88.8 Allergy status to other drugs, medicaments and biological substances
CPT/HCPCS: 36415; 83880; 85025; 94640; 96374; 96375; 99285; J1200; J2270; J2919; J3490; J7620-GY

== ENCOUNTER 2024-02-01 19:12 | Emergency (ER) | payer BC ==
[2024-02-01] MEDS: Albuterol/Ipratropium 3.0-0.5 MG/3 ML Neb Soln NEB ONE ×2 (19:33→19:43)
[2024-02-01] MEDS: Magnesium Sulfate/Water 2 GM in Premix Bag 1 BAG IV ONE (19:44)
[2024-02-01] MEDS: Sodium Chloride 0.9% 10 ML Syringe FLUSH PRN (19:44)
[2024-02-01 19:51] LABS: HEMATOCRIT 41.1 % (37.0-47.0); HEMOGLOBIN 13.6 g/dL (12.0-16.0); MEAN CORPUSCULAR HEMOGLOBIN 28.8 pg (27.0-34.0); MEAN CORPUSCULAR HGB CONC 33.1 g/dL (33.0-35.0); MEAN CORPUSCULAR VOLUME 87.1 fL (80-100); PLATELET COUNT,PLT 240 10^3/uL (150-450); RED BLOOD CELL COUNT 4.72 10^6/uL (4.2-5.4); WHITE BLOOD CELL COUNT,WBC 7.9 10^3/uL (5.0-10.0)
[2024-02-01] MEDS: methylPREDNISolone Sodium Succinate 125 MG/2 ML SDV IVPUSH ONE (19:56)
[2024-02-01 20:16] LABS: ALANINE AMINOTRANSFERASE,ALT 36 U/L (14-59); ALBUMIN 3.7 g/dL (3.4-5.0); ALKALINE PHOSPHATASE 131 U/L (46-116); ANION GAP 13.6 mEq/L (7-13); ASPARTATE AMNIOTRANSFERASE,AST 18 U/L (15-37); BILIRUBIN TOTAL 0.3 mg/dL (0.2-1.0); BLOOD UREA NITROGEN,BUN 8 mg/dL (7-18); CALCIUM 9.1 mg/dL (8.5-10.1); CARBON DIOXIDE,CO2 28 mmol/L (21-32); CHLORIDE,CL 105 mmol/L (98-107); EST CRCL DRUG DOSING (CG) 51.66 mL/min; GLUCOSE RANDOM 144 mg/dL (70-99); MAGNESIUM 1.6 mg/dL (1.8-2.4); POTASSIUM,K 3.6 mmol/L (3.5-5.1); PROTEIN TOTAL,TP 7.3 g/dL (6.4-8.2); SODIUM,NA 143 mmol/L (136-145)
[2024-02-01] MEDS: Albuterol 0.083% 2.5 MG/3 ML Neb Soln NEB ONE (20:26)
[2024-02-01 20:27] LABS: EOSINOPHILS PERCENT AUTO 6.6 % (1.0-3.0); LYMPHOCYTES PERCENT AUTO 41.3 % (20.5-50.1); MONOCYTES PERCENT AUTO 9.7 % (2-8); NEUTROPHILS PERCENT AUTO 41.4 % (42.2-75.2)
[2024-02-01 20:38] LABS: B-TYPE NATRIURETIC PEPTIDE,BNP < 5 pg/ml (0-100)
[2024-02-01 20:39] LABS: C-REACTIVE PROTEIN < 0.50 ng/dL (<=0.50); ESTIMATED GFR 64 mL/min (>=60)
[2024-02-01 20:40] LABS: LACTIC ACID 2.7 mmol/L (0.4-2.0)
[2024-02-01 20:50] LABS: PROTHROMBIN TIME 10.4 SEC (9.0-12.0); PTT,PARTIAL THROMBOPLSTIN TIME 26.7 SEC (22.0-34.0)
[2024-02-01] MEDS: Sodium Chloride 0.9% 1,000 ML IV ONE (21:05)
[2024-02-01] MEDS: Gabapentin 300 MG Cap PO ONE (21:29)
[2024-02-01] MEDS: Carbidopa/Levodopa 25-100 MG Tab PO ONE (21:29)
[2024-02-01 21:36] LABS: O2 DELIVERY DEVICE ROOM AIR
[2024-02-01 21:38] LABS: PCO2 ARTERIAL 48 mmHg (35-45); PH,ARTERIAL 7.36 (7.35-7.45); PO2 ARTERIAL 74 mmHg (70-100)
[2024-02-01 21:39] LABS: BASE EXCESS ARTERIAL 1 mmol/L ((-2)-(+3)); BICARBONATE,ARTERIAL 26.6 mmol/L (22-26); O2 SATURATION ARTERIAL 95 % (95-100)
[2024-02-01 22:15] LABS: BAND PERCENT MAN 1 %; BASOPHILS PERCENT MAN 1; EOSINOPHILS PERCENT MAN 6 % (1-3); LYMPHOCYTES PERCENT MAN 39 % (20-50); MONOCYTES PERCENT MAN 13 % (2-8); SEG NEUTROPHILS PERCENT MAN 40 % (42-75)
[2024-02-01 22:49] VITALS: BP 152/88; PULSE 99
[2024-02-02 08:59] LABS: ALLEN TEST PERFORMED
== END 2024-02-01 22:44 | disposition home or self-care (01) ==
LOC: DL.ED 19:12
DX: J45.41 Moderate persistent asthma with (acute) exacerbation (principal); R06.03 Acute respiratory distress; G25.81 Restless legs syndrome; E78.00 Pure hypercholesterolemia, unspecified; K21.9 Gastro-esophageal reflux disease without esophagitis; Z79.899 Other long term (current) drug therapy; Z88.0 Allergy status to penicillin; Z88.1 Allergy status to other antibiotic agents
CPT/HCPCS: 36415; 36600; 71045; 80053; 82803; 83605; 83735; 83880; 84145; 84484; 85025; 85379; 85610; 85730; 86140; 87804; 93005; 96361; 96365; 96375; 99285-25; A9270-GY; J2919; J3475; J3490; J7030; J7613-GY; J7620-GY; U0002

== ENCOUNTER 2024-08-19 19:15 | Emergency (ER) | payer MEDICARE ==
[2024-08-19] MEDS ORDERED: Sodium Chloride 0.9% 10 ML Syringe FLUSH PRN (19:32)
[2024-08-19] MEDS: methylPREDNISolone Sodium Succinate 40 MG/1 ML SDV IVPUSH ONE (19:47)
[2024-08-19] MEDS: Albuterol/Ipratropium 3.0-0.5 MG/3 ML Neb Soln NEB ONE ×2 (19:47→21:18)
[2024-08-19 19:51] LABS: BASOPHILS PERCENT AUTO 0.6 % (0.0-1.0); EOSINOPHILS PERCENT AUTO 12.2 % (1.0-3.0); HEMATOCRIT 39.8 % (37.0-47.0); HEMOGLOBIN 12.7 g/dL (12.0-16.0); LYMPHOCYTES PERCENT AUTO 37.1 % (20.5-50.1); MEAN CORPUSCULAR HEMOGLOBIN 27.4 pg (27.0-34.0); MEAN CORPUSCULAR HGB CONC 31.9 g/dL (33.0-35.0); MEAN CORPUSCULAR VOLUME 85.8 fL (80-100); MONOCYTES PERCENT AUTO 10.8 % (2-8); NEUTROPHILS PERCENT AUTO 39.3 % (42.2-75.2); PLATELET COUNT,PLT 279 10^3/uL (150-450); RED BLOOD CELL COUNT 4.64 10^6/uL (4.2-5.4); WHITE BLOOD CELL COUNT,WBC 7.8 10^3/uL (5.0-10.0)
[2024-08-19 20:10] LABS: A/G RATIO 1.1; ALANINE AMINOTRANSFERASE,ALT 59 U/L (14-59); ALBUMIN 3.6 g/dL (3.4-5.0); ALKALINE PHOSPHATASE 104 U/L (46-116); ANION GAP 16.8 mEq/L (7-13); ASPARTATE AMNIOTRANSFERASE,AST 32 U/L (15-37); BILIRUBIN TOTAL 0.2 mg/dL (0.2-1.0); BLOOD UREA NITROGEN,BUN 14 mg/dL (7-18); BUN/CREATININE RATIO 14.4 (No establ ref range); CALCIUM 8.9 mg/dL (8.5-10.1); CARBON DIOXIDE,CO2 26 mmol/L (21-32); CHLORIDE,CL 106 mmol/L (98-107); CREATININE 0.97 mg/dL (0.55-1.02); GLUCOSE RANDOM 129 mg/dL (70-99); MAGNESIUM 1.6 mg/dL (1.8-2.4); SODIUM,NA 145 mmol/L (136-145)
[2024-08-19 20:14] LABS: LACTIC ACID 2.9 mmol/L (0.4-2.0)
[2024-08-19 20:16] LABS: ESTIMATED GFR 67 mL/min (>=60); POTASSIUM,K 3.8 mmol/L (3.5-5.1)
[2024-08-19] MEDS: Ondansetron 4 MG/2 ML SDV IVPUSH ONE (21:18)
[2024-08-19 22:42] VITALS: BP 150/75; PULSE 94
== END 2024-08-19 22:38 | disposition home or self-care (01) ==
LOC: DL.ED 19:15
DX: J45.901 Unspecified asthma with (acute) exacerbation (principal); E78.00 Pure hypercholesterolemia, unspecified; J45.909 Unspecified asthma, uncomplicated; Z88.0 Allergy status to penicillin; Z88.1 Allergy status to other antibiotic agents; Z88.8 Allergy status to other drugs, medicaments and biological substances; Z79.890 Hormone replacement therapy; Z79.899 Other long term (current) drug therapy
CPT/HCPCS: 36415; 71046; 80053; 83605; 83735; 85025; 87428-QW; 93005; 96374; 96375; 99285-25; J2405; J2919; J7620-GY

== ENCOUNTER 2025-01-23 04:52 | Emergency (ER) | payer MEDICARE, OTHER ==
[2025-01-23] MEDS ORDERED: Sodium Chloride 0.9% 10 ML Syringe FLUSH PRN (05:05)
[2025-01-23 05:06] VITALS: BP 137/67; PULSE 88
[2025-01-23] MEDS ORDERED: Orphenadrine 60 MG/2 ML Inj IV ONE (05:06)
[2025-01-23] MEDS: Orphenadrine 60 MG/2 ML Inj IM ONE (05:23)
[2025-01-23] MEDS: Ketorolac 30 MG/ML SDV IM ONE (05:26)
[2025-01-23 05:41] LABS: PLATELET COUNT,PLT 239 10^3/uL (150-450); RED BLOOD CELL COUNT 4.44 10^6/uL (4.2-5.4); WHITE BLOOD CELL COUNT,WBC 6.6 10^3/uL (5.0-10.0)
[2025-01-23 05:45] LABS: BASOPHILS PERCENT AUTO 1.4 % (0.0-1.0); EOSINOPHILS PERCENT AUTO 10.9 % (1.0-3.0); LYMPHOCYTES PERCENT AUTO 39.1 % (20.5-50.1); MONOCYTES PERCENT AUTO 12.6 % (2-8); NEUTROPHILS PERCENT AUTO 36.0 % (42.2-75.2)
[2025-01-23 06:00] LABS: BLOOD UREA NITROGEN,BUN 14.0 mg/dL (7-18); CARBON DIOXIDE,CO2 31.0 mmol/L (21-32); CHLORIDE,CL 107.0 mmol/L (98-107); CREATININE 1.13 mg/dL (0.55-1.02); EST CRCL DRUG DOSING (CG) 45.15 mL/min; GLUCOSE RANDOM 112.0 mg/dL (70-99); POTASSIUM,K 3.9 mmol/L (3.5-5.1); SODIUM,NA 143.0 mmol/L (136-145)
[2025-01-23 06:01] LABS: A/G RATIO 1.2; ALANINE AMINOTRANSFERASE,ALT 52.0 U/L (14-59); ASPARTATE AMNIOTRANSFERASE,AST 36.0 U/L (15-37); BILIRUBIN TOTAL 0.3 mg/dL (0.2-1.0); PROTEIN TOTAL,TP 6.8 g/dL (6.4-8.2)
[2025-01-23 06:05] LABS: ESTIMATED GFR 55.0 mL/min (>=60)
[2025-01-23 06:15] LABS: BAND PERCENT MAN 2 %; BASOPHILS PERCENT MAN 1; EOSINOPHILS PERCENT MAN 10 % (1-3); LYMPHOCYTES PERCENT MAN 40 % (20-50); MONOCYTES PERCENT MAN 5 % (2-8); SEG NEUTROPHILS PERCENT MAN 42 % (42-75)
== END 2025-01-23 06:42 | disposition home or self-care (01) ==
LOC: DL.ED 04:52
DX: G25.81 Restless legs syndrome (principal); E78.00 Pure hypercholesterolemia, unspecified; J45.909 Unspecified asthma, uncomplicated; K21.9 Gastro-esophageal reflux disease without esophagitis; E03.9 Hypothyroidism, unspecified; Z88.8 Allergy status to other drugs, medicaments and biological substances; Z88.0 Allergy status to penicillin; Z88.1 Allergy status to other antibiotic agents; Z79.890 Hormone replacement therapy; Z79.899 Other long term (current) drug therapy; Z79.51 Long term (current) use of inhaled steroids
CPT/HCPCS: 36415; 80053; 83735; 83880; 85025; 85379; 96372; 99283; J1885; J2360

== ENCOUNTER 2025-05-02 05:46 | Emergency (ER) | payer MEDICARE ==
[2025-05-02 06:20] LABS: BASOPHILS PERCENT AUTO 0.4 % (0.0-1.0); EOSINOPHILS PERCENT AUTO 0.0 % (1.0-3.0); LYMPHOCYTES PERCENT AUTO 16.3 % (20.5-50.1); MONOCYTES PERCENT AUTO 9.8 % (2-8); NEUTROPHILS PERCENT AUTO 73.5 % (42.2-75.2); PLATELET COUNT,PLT 312 10^3/uL (150-450); RED BLOOD CELL COUNT 5.05 10^6/uL (4.2-5.4); WHITE BLOOD CELL COUNT,WBC 9.8 10^3/uL (5.0-10.0)
[2025-05-02 06:54] LABS: A/G RATIO 0.9; ALANINE AMINOTRANSFERASE,ALT 35.0 U/L (14-59); ASPARTATE AMNIOTRANSFERASE,AST 18.0 U/L (15-37); BILIRUBIN TOTAL 0.3 mg/dL (0.2-1.0); BLOOD UREA NITROGEN,BUN 13.0 mg/dL (7-18); CARBON DIOXIDE,CO2 30.0 mmol/L (21-32); CHLORIDE,CL 103.0 mmol/L (98-107); CREATININE 1.02 mg/dL (0.55-1.02); EST CRCL DRUG DOSING (CG) 50.01 mL/min; GLUCOSE RANDOM 154.0 mg/dL (70-99); POTASSIUM,K 4.0 mmol/L (3.5-5.1); PROTEIN TOTAL,TP 7.6 g/dL (6.4-8.2); SODIUM,NA 142.0 mmol/L (136-145); TSH ULTRASENSITIVE 33.02 uIU/mL (0.36-3.74)
[2025-05-02 06:55] LABS: ESTIMATED GFR 63.0 mL/min (>=60)
[2025-05-02 07:11] LABS: APPEARANCE,URINE CLEAR (CLEAR); GLUCOSE,URINE NEGATIVE (NEGATIVE); OCCULT BLOOD,URINE NEGATIVE (NEGATIVE)
[2025-05-02 07:17] VITALS: PULSE 87
[2025-05-02 08:19] VITALS: BP 133/94
== END 2025-05-02 08:39 | disposition home or self-care (01) ==
LOC: DL.ED 05:46
DX: R03.0 Elevated blood-pressure reading, without diagnosis of hypertension (principal); R00.2 Palpitations; E86.0 Dehydration; J45.909 Unspecified asthma, uncomplicated; E78.00 Pure hypercholesterolemia, unspecified; K21.9 Gastro-esophageal reflux disease without esophagitis; E03.9 Hypothyroidism, unspecified; Z86.16 Personal history of COVID-19; Z88.0 Allergy status to penicillin; Z88.8 Allergy status to other drugs, medicaments and biological substances; Z79.890 Hormone replacement therapy; Z79.899 Other long term (current) drug therapy
CPT/HCPCS: 36415; 71045; 80053; 81003; 83735; 84439; 84443; 84484; 85025; 85730; 99285